=== PATIENT | female | born 1950 | race Caucasian/White ===

== ENCOUNTER 2018-11-04 13:32 | Outpatient (CLI) | payer MEDICARE ==
[2018-11-04 14:55] LABS: BASOPHILS # (AUTO) 0.03 x10^3/uL (0-0.1); BASOPHILS % (AUTO) 0 % (0-1); EOSINOPHILS # (AUTO) 0.09 x10^3/uL (0-0.4); EOSINOPHILS % (AUTO) 1 % (1-7); LYMPHOCYTES # (AUTO) 1.71 x10^3/uL (1-3.4); LYMPHOCYTES % (AUTO) 21 % (22-44); MD NO; MEAN CORPUSCULAR HEMOGLOBIN 31.1 pg (27.0-34.8); MEAN CORPUSCULAR HGB CONC 32.3 g/dL (32.4-35.8); MEAN CORPUSCULAR VOLUME 96.2 fL (80-100); MONOCYTES # (AUTO) 0.39 x10^3/uL (0.2-0.8); MONOCYTES % (AUTO) 5 % (2-9); NEUTROPHILS # (AUTO) 5.94 x10^3/uL (1.8-6.8); NEUTROPHILS % (AUTO) 73 % (42-75); PLATELET COUNT 249 x10^3/uL (130-400); RED BLOOD COUNT 4.79 x10^6/uL (3.82-5.3); RED CELL DISTRIBUTION WIDTH 13.4 % (9.6-15.2)
[2018-11-04 15:00] LABS: ALANINE AMINOTRANSFERASE 16 U/L (12-78); ALBUMIN 3.9 g/dL (3.4-5.0); ANION GAP 4 mmol/L (5-15); CALCIUM 8.8 mg/dL (8.5-10.1); CHLORIDE 109 mmol/L (98-107); CREATININE 0.85 mg/dL (0.55-1.02); INTERNATIONAL NORMALIZED RATIO 0.91 (0.93-1.1); PROTHROMBIN TIME 9.6 Seconds (9.6-11.5)
[2018-11-04 15:03] LABS: ALKALINE PHOSPHATASE 75 U/L (45-117); BILIRUBIN,TOTAL 0.4 mg/dL (0.2-1.0); TOTAL PROTEIN 6.8 g/dL (6.4-8.2)
[2018-11-04] MEDS ORDERED: TRAM100T33 PO (15:08)
[2018-11-04] MEDS ORDERED: DOXY100C2 PO (15:08)
[2018-11-04] MEDS ORDERED: OXYC5CAP2 PO (15:08)
[2018-11-04 15:09] LABS: HEMOGLOBIN A1C 5.1 % (4.2-6.3)
== END 2018-11-04 23:59 | disposition home or self-care (01) ==
LOC: STAR 13:32
PROVIDERS: ATTEND Orthopaedic Surgery
DX: Z01.818 Encounter for other preprocedural examination (principal); M16.12 Unilateral primary osteoarthritis, left hip
CPT/HCPCS: 36415; 80053; 83036; 85025; 85610; 85730; 87081; 87806; 93005; G0475

== ENCOUNTER 2018-11-16 07:00 | Inpatient (IN) | payer MEDICARE ==
[~2018-11-16] VITALS: Ht 170.2 cm; Wt 64.0 kg
[~2018-11-16 07:00] MED LIST: DOXY100C2 PO; OXYC5CAP2 PO; TRAM100T33 PO
[2018-11-16] MEDS ORDERED: TRANEXAMIC ACID 100 MG/ML, 10ML ONE ×5 (07:24→11:20)
[2018-11-16] MEDS ORDERED: KETOROLAC 60 MG/2 ML ONE (07:24)
[2018-11-16] MEDS ORDERED: EPINEPHRINE 1 MG/ML, 1ML ONE (07:25)
[2018-11-16] MEDS ORDERED: SODIUM CHLORIDE 0.9% 50 ML ONE (07:25)
[2018-11-16] MEDS ORDERED: ROPIvacaine/PF 0.2%, 20 ML ONE (07:25)
[2018-11-16] MEDS ORDERED: LACTATED RINGERS 1,000 ML IV SCH (09:08)
[2018-11-16] MEDS ORDERED: ACETAMINOPHEN 500 MG TABLET PO STA (09:09)
[2018-11-16] MEDS ORDERED: GABAPENTIN 300 MG CAPSULE PO STA (09:09)
[2018-11-16] MEDS ORDERED: CALC500T51 PO (09:15)
[2018-11-16] MEDS ORDERED: MAGN84TA6 PO (09:15)
[2018-11-16] MEDS ORDERED: MULT-257 PO (09:15)
[2018-11-16] MEDS ORDERED: FENTANYL PF 100 MCG/2ML ONE ×2 (10:41→12:20)
[2018-11-16] MEDS ORDERED: MIDAZOLAM 1 MG/ML, 2ML ONE (10:41)
[2018-11-16] MEDS ORDERED: ONDANSETRON 2MG/ML, 2ML ONE (10:58)
[2018-11-16] MEDS ORDERED: DEXAMETHASONE 4 MG/ML, 1ML ONE (10:58)
[2018-11-16] MEDS ORDERED: CEFAZOLIN 1,000 MG ONE (10:58)
[2018-11-16] MEDS ORDERED: PROPOFOL 10 MG/ML, 20ML ONE (10:58)
[2018-11-16] MEDS ORDERED: SUCCINYLCHOLINE 20 MG/ML, 10ML ONE (10:58)
[2018-11-16] MEDS ORDERED: ROCURONIUM 10 MG/ML,10ML ONE (10:58)
[2018-11-16] MEDS: FENTANYL PF 100 MCG/2ML IV PRN ×2 (12:15→12:33)
[2018-11-16] MEDS ORDERED: OXYcodone 5 MG/5 ML ORAL.SOL UDC ONE (12:20)
[2018-11-16] MEDS: HYDROmorphone 2 MG/ML, 1ML IVPush PRN ×3 (12:27→13:06)
[2018-11-16] MEDS ORDERED: ONDANSETRON 2MG/ML, 2ML IV PRN ×2 (12:30)
[2018-11-16] MEDS ORDERED: HYDROmorphone 2 MG/ML, 1ML IVPush PRN (12:30)
[2018-11-16] MEDS ORDERED: MAGNESIUM HYDROXIDE 8%, 30ML UDC PO PRN (12:30)
[2018-11-16] MEDS ORDERED: DIPHENHYDRAMINE 50 MG/ML, 1ML IVPush PRN (12:30)
[2018-11-16] MEDS ORDERED: POLYETHYLENE GLYCOL 17 GM PACKET PO PRN (12:30)
[2018-11-16] MEDS ORDERED: METOPROLOL 1 MG/ML, 5ML IV PRN (12:30)
[2018-11-16] MEDS ORDERED: TRANEXAMIC ACID 1,000 MG in SODIUM CHLORIDE 0.9% 100 ML IVPB ONE (12:30)
[2018-11-16] MEDS ORDERED: SENNA/DOCUSATE TABLET PO PRN (12:30)
[2018-11-16] MEDS ORDERED: ALUMINUM/MAG/SIMETHICONE 30 ML UDC PO PRN (12:30)
[2018-11-16] MEDS ORDERED: DIPHENHYDRAMINE 25 MG CAPSULE PO PRN (12:30)
[2018-11-16] MEDS ORDERED: ACETAMINOPHEN 650 MG/20.3 ML UDC PO PRN (12:30)
[2018-11-16] MEDS ORDERED: OXYcodone 5 MG/5 ML ORAL.SOL UDC PO PRN (12:30)
[2018-11-16] MEDS ORDERED: ONDANSETRON 4 MG TABLET PO PRN (12:30)
[2018-11-16] MEDS ORDERED: hydrALAzine 20 MG/ML, 1ML IV PRN (12:30)
[2018-11-16] MEDS ORDERED: LABETALOL 5MG/ML, 20ML IV PRN (12:30)
[2018-11-16] MEDS ORDERED: METOCLOPRAMIDE 5 MG/ML, 2ML IV PRN (12:30)
[2018-11-16] MEDS ORDERED: MEPERIDINE/PF 25MG/0.5ML IVPush PRN (12:30)
[2018-11-16] MEDS ORDERED: PROMETHAZINE 25 MG/ML, 1ML IM PRN (12:30)
[2018-11-16] MEDS ORDERED: LORazepam 2 MG/ML, 1ML IVPush PRN (12:30)
[2018-11-16] MEDS ORDERED: HYDROmorphone 2 MG/ML, 1ML ONE (12:35)
[2018-11-16] MEDS ORDERED: LORazepam 2 MG/ML, 1ML ONE (12:35)
[2018-11-16] MEDS ORDERED: MEPERIDINE/PF 25MG/ML,1ML ONE (13:04)
[2018-11-16 13:35] VITALS: BP 112/71
[2018-11-16] MEDS: POTASSIUM CHLORIDE 20 MEQ in D5%-0.45% NACL 1,000 ML IV SCH ×2 (14:11→22:48)
[2018-11-16] MEDS: KETOROLAC 30 MG/1 ML IV SCH ×2 (14:11→21:27)
[2018-11-16] MEDS: ASPIRIN 81 MG TABLET EC PO SCH ×2 (17:29→21:28)
[2018-11-16] MEDS: OXYcodone IR 5MG TABLET PO PRN ×2 (17:30→21:28)
[2018-11-16] MEDS: CEFAZOLIN PMX 1GM/50ML 50 ML IVPB SCH (18:29)
[2018-11-16 19:30] VITALS: BP 142/79
[2018-11-16] MEDS: KETOROLAC OPHTH 0.5%, 5ML OP SCH (20:08)
[2018-11-16] MEDS: DOCUSATE 100 MG CAPSULE PO SCH (21:28)
[2018-11-16] MEDS: TOBRAMYCIN OPHTH OINT 3.5 GM OP SCH (21:28)
[2018-11-16] MEDS: DOXYCYCLINE 100MG TABLET PO SCH (21:28)
[2018-11-17 00:15] VITALS: BP 121/71
[2018-11-17] MEDS: OXYcodone IR 5MG TABLET PO PRN ×4 (01:46→13:41)
[2018-11-17] MEDS: CEFAZOLIN PMX 1GM/50ML 50 ML IVPB SCH (02:31)
[2018-11-17 02:42] VITALS: BP 106/57
[2018-11-17] MEDS: TOBRAMYCIN OPHTH OINT 3.5 GM OP SCH ×2 (03:37→10:00)
[2018-11-17] MEDS: KETOROLAC OPHTH 0.5%, 5ML OP SCH ×2 (05:39→11:00)
[2018-11-17] MEDS: KETOROLAC 30 MG/1 ML IV SCH (05:39)
[2018-11-17] MEDS ORDERED: DEXAMETHASONE 4 MG/ML, 1ML IVPush SCH (06:00)
[2018-11-17 07:35] VITALS: BP 118/68
[2018-11-17] MEDS: ASPIRIN 81 MG TABLET EC PO SCH (08:59)
[2018-11-17] MEDS: DOCUSATE 100 MG CAPSULE PO SCH (08:59)
[2018-11-17] MEDS ORDERED: TAMSULOSIN 0.4 MG CAP.ER.24H PO SCH (09:00)
[2018-11-17] MEDS: DOXYCYCLINE 100MG TABLET PO SCH (09:00)
[2018-11-17] MEDS: POTASSIUM CHLORIDE 20 MEQ in D5%-0.45% NACL 1,000 ML IV SCH (10:08)
[2018-11-17 12:20] VITALS: BP 129/74
== END 2018-11-17 14:45 | disposition home or self-care (01) | DRG 470 ==
LOC: ORIP 08:23 → 4NOR 13:37 → DCLOUNGE 11-17 14:23
PROVIDERS: ADMIT Orthopaedic Surgery; ATTEND Orthopaedic Surgery
PROC: 0SRB06Z Replacement of Left Hip Joint with Oxidized Zirconium on Polyethylene Synthetic Substitute, Open Approach (ICD-10-PCS; principal; 2018-11-16 10:30)
DX: M16.12 Unilateral primary osteoarthritis, left hip (principal); G89.29 Other chronic pain; J30.2 Other seasonal allergic rhinitis; Z79.82 Long term (current) use of aspirin; Z79.899 Other long term (current) drug therapy
CPT/HCPCS: 36415; 72170; 85014; 85018; 86850; 86870; 86900; 86902; 86922; 86923; C1713; G0378; J0171; J0690; J1100; J1170; J1885; J2175; J2250; J2405; J2704; J2795; J3010; J3480; C1776; J0330; J2060; J7120

== ENCOUNTER 2019-01-04 06:58 | Day surgery (SDC) | payer MEDICARE ==
[~2019-01-04] VITALS: Ht 167.6 cm; Wt 59.6 kg
[2019-01-05 13:38] VITALS: BP 136/69
== END 2019-01-05 15:30 | disposition home or self-care (01) ==
LOC: OUT 06:58 → UNDOADMOB 08:49 → ORIP 08:49 → 4NOR 13:54 → DCLOUNGE 01-05 15:12 → 4NOR 01-05 15:12 → OUT 01-05 15:30 → UNDODISOB 01-05 15:30
PROVIDERS: ATTEND Orthopaedic Surgery
DX: M17.12 Unilateral primary osteoarthritis, left knee (principal); M25.762 Osteophyte, left knee; Z79.82 Long term (current) use of aspirin; Z79.891 Long term (current) use of opiate analgesic; Z79.1 Long term (current) use of non-steroidal anti-inflammatories (NSAID); Z79.899 Other long term (current) drug therapy; Z96.642 Presence of left artificial hip joint
CPT/HCPCS: 25447; 36415; 64447; 73560; 85014; 85018; 96365; 96366; 96375; 96376; 97110; 97161; C1713; C1776; J0171; J0330; J0690; J1100; J1170; J1885; J2250; J2405; J2704; J2795; J3010; J3480; J7120; G0378